=== PATIENT | female | born 1935 ===

== ENCOUNTER 2021-05-14 12:59 | Emergency (ER) | payer OTHER ==
[~2021-05-14] VITALS: Ht 152.4 cm; Wt 113.4 kg
[~2021-05-14 12:59] MED LIST: HYZAAR 100-121 UDTAB
[2021-05-14] MEDS ORDERED: GLIMEPIRIDE2 MG (13:13)
[2021-05-15] MEDS ORDERED: MIRALAX510 GM PO (04:44)
== END 2021-05-15 12:23 | disposition home or self-care (01) ==
LOC: ER 12:59
DX: K56.41 Fecal impaction (principal); K64.8 Other hemorrhoids; K57.31 Diverticulosis of large intestine without perforation or abscess with bleeding; Z03.818 Encounter for observation for suspected exposure to other biological agents ruled out

== ENCOUNTER 2021-07-13 12:51 | Emergency (ER) | payer OTHER ==
[~2021-07-13] VITALS: Ht 152.4 cm; Wt 127.0 kg
[~2021-07-13 12:51] MED LIST changes: +GLIMEPIRIDE2 MG; +MIRALAX510 GM PO
[2021-07-13] MEDS ORDERED: ANALPRAM HC 1%30 GM TOP (21:36)
[2021-07-13] MEDS ORDERED: ANUSOL-HC25 MG RECTAL (21:36)
[2021-07-13] MEDS ORDERED: ULTRAM50 MG PO (21:37)
== END 2021-07-14 10:57 | disposition home or self-care (01) ==
LOC: ER 12:51
DX: K64.4 Residual hemorrhoidal skin tags (principal); Z11.52 Encounter for screening for COVID-19